=== PATIENT | male | born 2000 | race Caucasian/White ===

== ENCOUNTER 2021-01-08 01:42 | Emergency (ER) | payer BC, MEDICAID ==
[2021-01-08] MEDS ORDERED: diphenhydrAMINE 50 MG Cap PO ONE (02:12)
--- NOTE | 2021-01-08 02:12 | EDM.PDOC ---
ED HPI GENERAL MEDICAL PROBLEM - General Chief Complaint: General Stated Complaint: SEVERE HAND CRAMPS Time Seen by Provider: 01/08/21 02:09 - History of Present Illness INITIAL COMMENTS - FREE TEXT/NARRATIVE: HISTORY AND PHYSICAL: History of present illness: This is 20-year-old gentleman who presents ER today secondary to cramping and contractures in his hands that occurred earlier today after having episode of stress and anxiety over relationship issues studies encountering and also try to "figure out why". Patient reports he started getting shortly anxious and started to hyperventilate. Patient reports that his hand started to cramp up. Patient reports that this lasted for quite some time however upon arrival to the ED it had significantly improved. Patient has any recent fevers, shakes, chills, nausea, vomiting, diarrhea, dysuria, frequency, urgency of chest pain, shortness of breath. Patient reports no recent trauma. Patient has been tolerating p.o. solids and liquids well. Patient denies any alcohol use today but was smoking marijuana prior to this episode by approximately 3 hours. Review of systems: As per history of present illness and below otherwise all systems reviewed and negative. Past medical history: As per history of present illness and as reviewed below otherwise noncontributory. Surgical history: As per history of present illness and as reviewed below otherwise noncontributor y. Social history: No reported history of drug abuse. Family history: As per history of present illness and as reviewed below otherwise noncontributory. Physical exam: This patient was seen and evaluated during the 2019 SARS-CoV-2 novel coronavirus pandemic period. Community viral transmission is ongoing at time of this encounter and the emergency department is operating under pandemic response procedures. Constitutional: Patient is oriented to person, place, and time. Appears well- developed and well-nourished. No distress. HEENT: Moist mucous membranes Head: Normocephalic and atraumatic Eyes: Right eye exhibits no discharge. Left eye exhibits no discharge. No scleral icterus Neck: Normal range of motion. No tracheal deviation present. Cardiovascular: Normal rate and regular rhythm. Pulmonary: Effort normal, no respiratory distress. Abdominal: No distention Musculoskeletal: Normal range of motion Neurologic: Alert and oriented to person, place and time. Skin: [place], warm and dry. Psychiatric: Normal mood and affect. Behavior is normal. Judgment and thought content normal. Nursing note and vital signs have been reviewed Patient denies any SI/HI Diagnostics: [] Therapeutics: [] Assessment and plan: 20-year-old presents ER today secondary to cramping of his hands most likely secondary to hyperventilation syndrome. At this time, the patient is signif icantly improved. Patient does not have any homicidal or suicidal ideation at that time. Patient feels comfortable with the plan to be discharged home and he will be observed by his girlfriend at home. Reassessment at the time of disposition demonstrates that the patient is in no acute distress. The patient has remained stable throughout the entire ED visit and is without objective evidence for acute process requiring urgent intervention or hospitalization. The patient is stable for discharge, counseling is provided as documented above, discussed symptomatic treatment and specific conditions for return. I have spoken with the patient/caregiver and discussed todays findings, in addition to providing specific details for the plan of care. Questions are answered and there is agreement with the plan. Definitive disposition and diagnosis as appropriate pending reevaluation and review of above. - Related Data Allergies Allergy/AdvReac Type Severity Reaction Status Date / Time No Known Allergies Allergy Verified 01/08/21 01:56 Home Meds: Home Meds . [No Known Home Meds] 01/08/21 [History] Past Medical History - Past Health History Medical/Surgical History: Denies Medical/Surgical History Social & Family History - Tobacco Use Tobacco Use Status *Q: Never Tobacco User Second Hand Smoke Exposure: No - Recreational Drug Use Recreational Drug Use: Yes Drug Use in Last 12 Months: Yes Recreational Drug Type: Reports: Marijuana/Hashish Recreational Drug Use Frequency: Socially ED ROS GENERAL - Review of Systems Review Of Systems: See Below ED EXAM, GENERAL - Physical Exam Exam: See Below Course - Vital Signs Last Recorded V/S: Last Vital Signs Temp 96.2 F L 01/08/21 01:56 Pulse 105 H 01/08/21 01:56 Resp 19 01/08/21 01:56 BP 121/72 01/08/21 01:56 Pulse Ox 99 01/08/21 01:56 Departure - Departure Time of Disposition: 02:11 Disposition: Home, Self-Care 01 Condition: Good Clinical Impression: Hyperventilation syndrome, Anxiety - Discharge Information Instructions: Hyperventilation, Managing Anxiety, Adult Referrals: PCP,None [Primary Care Provider] - Additional Instructions: You were seen and evaluated in ER today secondary to contractures and cramping in your hands which were most likely secondary to hyperventilation syndrome from stress/anxiety. You will be given a dose of Benadryl here in the ED to help you get some rest tonight. Please follow-up with your doctor next week for reevaluation. The following information is given to patients seen in the emergency department who are being discharged to home. This information is to outline your options for follow-up care. We provide all patients seen in our emergency department with a follow-up referral. The need for follow-up, as well as the timing and circumstances, are variable depending upon the specifics of your emergency department visit. If you don't have a primary care physician on staff, we will provide you with a referral. We always advise you to contact your personal physician following an emergency department visit to inform them of the circumstance of the visit and for follow-up with them and/or the need for any referrals to a consulting specialist. The emergency department will also refer you to a specialist when appropriate. This referral assures that you have the opportunity for follow-up care with a specialist. All of these measure are taken in an effort to provide you with optimal care, which includes your follow-up. Under all circumstances we always encourage you to contact your private physician who remains a resource for coordinating your care. When calling for follow-up care, please make the office aware that this follow-up is from your recent emergency room visit. If for any reason you are refused follow-up, please contact the [facility] Department at and asked to speak to the emergency department charge nurse. [facility] [address] [place] [id number] [facility] [address] [place] [id number] Sepsis Event Note (ED) - Focused Exam Vital Signs: Vital Signs Temp Pulse Resp BP Pulse Ox 01/08/21 01:56 96.2 F L 105 H 19 121/72 99
== END 2021-01-08 02:22 | disposition home or self-care (01) ==
LOC: MW.ED 01:42
DX: F41.9 Anxiety disorder, unspecified (principal); F45.8 Other somatoform disorders
CPT/HCPCS: 99283; A9270

== ENCOUNTER 2025-03-08 23:12 | Emergency (ER) | payer BC ==
[2025-03-08] MEDS ORDERED: Lidocaine 2% with EPINEPHrine 1:200,000 20 ML SDV INJECT ONE (23:20)
[2025-03-08] MEDS: Diphtheria,Pertussis(Acell),Tetanus Vaccine 0.5 ML Syringe IM ONE (23:28)
[2025-03-08] MEDS: Lidocaine 1% with EPINEPHrine 1:100,000 10 ML MDV INJECT ONE (23:31)
[2025-03-09] MEDS: Bacitracin Oint 1 GM U/D Packet TOP ONE (00:21)
== END 2025-03-09 00:39 | disposition home or self-care (01) ==
LOC: MW.ED 23:12
DX: S01.81XA Laceration without foreign body of other part of head, initial encounter (principal); S09.90XA Unspecified injury of head, initial encounter; Z23 Encounter for immunization; Z75.3 Unavailability and inaccessibility of health-care facilities; W19.XXXA Unspecified fall, initial encounter
CPT/HCPCS: 12011; 90471; 90715; 99282; J2004; 99283